=== PATIENT | male | born 1995 | race African-American/Black ===

== ENCOUNTER 2020-12-19 19:38 | Emergency (ER) | payer OTHER, SELFPAY | END 2020-12-19 22:13 | disposition home or self-care (01) | LOC: ERS 19:38 | DX: M25.562 Pain in left knee (principal); M25.462 Effusion, left knee; W01.0XXA Fall on same level from slipping, tripping and stumbling without subsequent striking against object, initial encounter ==

== ENCOUNTER 2020-12-22 22:22 | Emergency (ER) | payer SELFPAY ==
[2020-12-22] MEDS ORDERED: HYDROcodone/Acetaminophen 5/325 mg Tablet ONE (23:09)
== END 2020-12-22 23:38 | disposition home or self-care (01) ==
LOC: ERS 22:22
DX: L03.211 Cellulitis of face (principal)
CPT/HCPCS: 99283